=== PATIENT | female | born 1990 | race American Indian/Alaskan Native ===

== ENCOUNTER 2018-04-02 06:06 | Inpatient (IN) | payer MEDICAID ==
[~2018-04-02 06:06] MED LIST: Carboprost Tromethamine 250 MCG/1 ML Amp IM PRN; Lactated Ringers 1,000 ML IV SCH; Oxytocin/Normal Saline 30 UNIT/500 ML BAG IV SCH; Sodium Chloride 0.9% 10 ML Syringe FLUSH PRN; Tranexamic Acid 1,000 MG in Sodium Chloride 0.9% 100 ML IV PRN
[2018-04-02] MEDS: Lactated Ringers 1,000 ML IV SCH ×4 (06:52→21:00)
[2018-04-02] MEDS ORDERED: Citric Acid/Sodium Citrate Solution 30 ML Cup PO ONE (07:00)
[2018-04-02] MEDS ORDERED: ceFAZolin 2 GM in Premix Bag 1 BAG IV ONE (07:00)
[2018-04-02] MEDS ORDERED: Oxytocin/Normal Saline 30 UNIT/500 ML BAG ONE ×2 (07:39→08:48)
[2018-04-02] MEDS ORDERED: Lactated Ringers 1,000 ML IV ONE (12:21)
[2018-04-02] MEDS ORDERED: Ondansetron 4 MG/2 ML SDV IV ONE (12:21)
[2018-04-02] MEDS ORDERED: Dexamethasone 4 MG/ML SDV IV ONE (12:21)
[2018-04-02] MEDS ORDERED: Morphine PF 1 MG/ML Amp ITHECAL ONE (12:21)
[2018-04-02] MEDS ORDERED: Ketorolac 30 MG/ML SDV IVPUSH ONE (12:21)
[2018-04-02] MEDS ORDERED: Misoprostol 400 MCG (4 X 100 MCG TAB) RECTAL PRN (12:39)
[2018-04-02] MEDS ORDERED: Naloxone 2 MG/2 ML Syringe IVPUSH PRN (12:39)
[2018-04-02] MEDS ORDERED: ePHEDrine 50 MG/ML SDV IVPUSH PRN (12:39)
[2018-04-02] MEDS ORDERED: Methylergonovine 0.2 MG/1 ML Amp IM PRN (12:39)
[2018-04-02] MEDS ORDERED: Acetaminophen/oxyCODONE 325-5 MG Tab PO PRN (12:39)
[2018-04-02] MEDS ORDERED: Acetaminophen 325 MG Tab PO PRN (12:39)
[2018-04-02] MEDS ORDERED: diphenhydrAMINE 50 MG/ML SDV IVPUSH PRN (12:39)
[2018-04-02] MEDS ORDERED: Ondansetron 4 MG/2 ML SDV IV PRN (12:39)
[2018-04-02] MEDS ORDERED: Lactated Ringers 1,000 ML IV SCH (12:45)
[2018-04-02] MEDS: Simethicone 80 MG Tab.Chew PO SCH ×3 (13:47→21:50)
--- NOTE | 2018-04-02 14:37 | OR ---
DATE: 04/02/2018 PREOPERATIVE DIAGNOSES: 1. A 27-year-old , 3, para 1-0-1-1. 2. High-risk at 39 weeks 1 day. 3. Prior section. 4. Blood type O positive. Rubella immune. Group B streptococcus negative. 5. History of maternal drug use during with negative urine drug screening on admission. 6. Positive anti-S antibody with stable titer. 7. Increased body mass index. POSTOPERATIVE DIAGNOSES: 1. A 27-year-old , 3, para 2, viable male infant born on 04/02/2020 at 9:36 a.m. with scores of 7 and 9 and weight of 2610 g/5 pounds 12 ounces. 2. High-risk at 39 weeks 1 day. 3. Prior section. 4. Blood type O positive. Rubella immune. Group B streptococcus negative. 5. History of maternal drug use during with negative urine drug screening on admission. 6. Positive anti-S antibody with stable titer. 7. Increased body mass index. PROCEDURE: Elective repeat low transverse section. NEWS CAMERA OPERATOR: Tiffanie Ragland MD. STUDENTS: 1. Aide Cosme MS-IV. 2. Irma Reilly MS-III. FINDINGS: This 27-year-old , G3, P1-0-1-1, had limited care and a high-risk . Please see her notes and admission H and P for details. She presented to the OB floor as scheduled and was brought down to the OR after having a reactive NST on the floor. She underwent spinal anesthesia without complication and had an excellent block. Rich catheter was placed, and then she was prepped and draped in the usual sterile manner. A surgical marker was used to juan antonio her previous Pfannenstiel incision and had a time-out performed in my presence. A skin incision was made with a scalpel. Then, the incision was carried down through the subcutaneous tissue with electrocautery. The fascia was divided transversely, and superior and inferior fascial flaps were developed with sharp and blunt dissection. The rectus was identified and divided in the midline, and the peritoneum was identified and entered bluntly. Incision was opened with blunt dissection. We had excellent visualization of the lower uterine segment. An extra-large Dannie retractor was placed without difficulty. A stab incision was made into the lower uterine segment and extended bilaterally with blunt dissection. The amniotic sac bulged up through the incision and was opened with a hemostat with return of clear amniotic fluid. The vertex was elevated up through the incision, and this male was delivered easily and had spontaneous cry at . He was suctioned, dried, stimulated, then carried to the awaiting nursery staff by the medical student. The cord had been doubly clamped and cut. The cord blood sample was obtained. A 3-vessel cord was noted. The cord was fairly thin and 6 plus inch. A section was sent for drug testing. The placenta was removed intact and later examined and found to be rather small in size. She had a central cord insertion. It did not appear to have any missing caudal lesions. They were calcified and appeared very mature for non-post dates . We will send it to Pathology for evaluation. The uterus was wiped clean and dry. It appeared empty. The uterine incision edges were grasped with Casanova forceps. The uterine incision was closed with running locking 0 Vicryl with excellent results and hemostasis. Any bleeders were electrocauterized. The uterine area was examined. The gutters appeared clear. The abdominal cavity was irrigated, aspirated, and appeared clear of any clots or active bleeding. A final look at the incision showed it to be hemostatic. The peritoneum and muscle layer were brought together with [id number] interrupted 0 Vicryl stitch with good results. The fascia was brought together with running PDS loop suture with excellent results. Subcutaneous tissue appeared clear of any bleeders. Skin edges were brought together with nell. All counts were correct. Estimated blood loss was 400 mL. There were no intraoperative complications, and the patient was transferred to recovery in good condition with stable vital signs. She did receive Pitocin IV infusion per protocol following delivery. She received Ancef 2 g IV preop antibiotic. Estimated blood loss as noted 400 mL. Rich catheter continued to drain clear urine. [facility] /[id number]
[2018-04-02] MEDS: Ketorolac 30 MG/ML SDV IVPUSH SCH ×2 (16:01→21:51)
[2018-04-02] MEDS: ceFAZolin 1 GM in Premix Bag 1 BAG IV SCH ×2 (16:27→21:53)
[2018-04-02] MEDS: Zolpidem 5 MG Tab PO PRN (21:50)
[2018-04-02] MEDS: Docusate Sodium 100 MG Cap PO PRN (21:50)
[2018-04-03] MEDS: Acetaminophen/oxyCODONE 325-5 MG Tab PO PRN ×5 (00:07→20:20)
[2018-04-03] MEDS: Lactated Ringers 1,000 ML IV SCH ×2 (00:10→04:20)
[2018-04-03] MEDS: Ketorolac 30 MG/ML SDV IVPUSH SCH (04:19)
[2018-04-03] MEDS: ceFAZolin 1 GM in Premix Bag 1 BAG IV SCH (05:52)
--- NOTE | 2018-04-03 07:04 | PCM.PNPP ---
- General Info Date of Service: 04/03/18 Subjective Update: Patient is Post day 1 from section and delivery of male . She eating, drinking, and tolerating activity. She complains of some mild cramping and incision site pain. She is having normal amount of bleeding. She has a Rich catheter in place. She denies fever, chills, chest pain, shortness of breath, and lower extremity edema. - General Info Date of Service: 04/03/18 - Patient Data Vital Signs - Most Recent: Last Vital Signs Temp 97.9 F 04/03/18 04:00 Pulse 59 L 04/03/18 04:00 Resp 16 04/03/18 04:00 BP 97/47 L 04/03/18 04:00 Pulse Ox 16 L 04/02/18 20:00 Weight - Most Recent: 232 lb I&O - Last 24 Hours: Intake & Output 04/02/18 04/03/18 04/03/18 22:59 06:59 14:59 Intake Total 550 Output Total 300 185 Balance 250 -185 Lab Results - Last 24 Hours: Laboratory Results - last 24 hr 04/02/18 04/02/18 04/02/18 Range/Units 06:43 06:43 07:07 WBC 9.0 (5.0-10.0) 10^3/uL RBC 3.87 L (4.2-5.4) 10^6/uL Hgb 11.0 L D (12.0-16.0) g/dL Hct 33.2 L (37.0-47.0) % MCV 85.8 (80-100) fL MCH 28.4 (27.0-34.0) pg MCHC 33.1 (33.0-35.0) g/dL Plt Count 244 D (150-450) 10^3/uL Neut % (Auto) 57.8 (42.2-75.2) % Lymph % (Auto) 34.3 (20.5-50.1) % [place] % (Auto) 6.4 (2-8) % Eos % (Auto) 1.3 (1.0-3.0) % Baso % (Auto) 0.2 (0.0-1.0) % Urine Opiates Screen Negative (NEGATIVE) Ur Oxycodone Screen Negative (NEGATIVE) Urine Methadone Screen Negative (NEGATIVE) Ur Barbiturates Screen Negative (NEGATIVE) U Tricyclic Antidepress Negative (NEGATIVE) Ur Phencyclidine Scrn Negative (NEGATIVE) Ur Amphetamine Screen Negative (NEGATIVE) U Methamphetamines Scrn Negative (NEGATIVE) Urine MDMA Screen Negative (NEGATIVE) U Benzodiazepines Scrn Negative (NEGATIVE) Urine Cocaine Screen Negative (NEGATIVE) U Marijuana (THC) Screen Negative (NEGATIVE) Blood Type O POSITIVE Gel Antibody Screen Positive Med Orders - Current: Current Medications Acetaminophen (Tylenol) 650 mg PO Q6H PRN PRN Reason: mild pain or fever Last Admin: 04/02/18 13:48 Dose: 650 mg Carboprost Tromethamine (Hemabate Ds) 250 mcg IM ASDIRECTED PRN PRN Reason: Excessive vaginal bleeding Diphenhydramine HCl (Benadryl) 25 mg IVPUSH Q6H PRN PRN Reason: Itching or Nausea Docusate Sodium (Colace) 100 mg PO Q12H PRN PRN Reason: Constipation Last Admin: 04/02/18 21:50 Dose: 100 mg Ephedrine Sulfate (Ephedrine Sulfate) 5 mg IVPUSH SEECOMMENT PRN PRN Reason: Other Lactated Ringer's (Ringers, Lactated) 1,000 mls @ 125 mls/hr IV ASDIRECTED MARISSA Last Admin: 04/03/18 04:20 Dose: 125 mls/hr Lactated Ringer's (Ringers, Lactated) 1,000 mls @ 500 mls/hr IV .BOLUS MARISSA Tranexamic Acid 1,000 mg/ (Sodium Chloride) 110 mls @ 660 mls/hr IV ONETIME PRN PRN Reason: Bleeding Oxytocin/Sodium Chloride (Pitocin In Ns 30 Unit/500 Ml) 30 unit in 500 mls @ 500 mls/hr IV TITRATE MARISSA; Protocol Last Titration: 04/02/18 12:30 Dose: 0 ml/hr, 0 mls/hr Lactated Ringer's (Ringers, Lactated) 1,000 mls @ 125 mls/hr IV ASDIRECTED MARISSA Ibuprofen (Motrin) 800 mg PO Q8H PRN PRN Reason: mild pain or fever Methylergonovine Maleate (Methergine) 0.2 mg IM ONETIME PRN PRN Reason: Excessive Vaginal Bleeding Misoprostol (Cytotec) 800 mcg RECTAL ASDIRECTED PRN PRN Reason: Excessive bleeding Naloxone HCl (Narcan) 0.1 mg IVPUSH SEECOMMENT PRN PRN Reason: Respiratory Depression Ondansetron HCl (Zofran) 4 mg IV Q4H PRN PRN Reason: Nausea/Vomiting Oxycodone/Acetaminophen (Percocet 325-5 Mg) 1 tab PO Q4H PRN PRN Reason: Pain (moderate 4-6) Oxycodone/Acetaminophen (Percocet 325-5 Mg) 2 tab PO Q4H PRN PRN Reason: Pain (severe 7-10) Last Admin: 04/03/18 00:07 Dose: 2 tab Simethicone (Simethicone) 160 mg PO QID MARISSA Last Admin: 04/02/18 21:50 Dose: 160 mg Sodium Chloride (Saline Flush) 10 ml FLUSH ASDIRECTED PRN PRN Reason: Keep Vein Open Zolpidem Tartrate (Ambien) 5 mg PO BEDTIME PRN PRN Reason: Sleep Last Admin: 04/02/18 21:50 Dose: 5 mg Discontinued Medications Citric Acid/Sodium Citrate (Bicitra Solution) 30 ml PO ONETIME ONE Stop: 04/02/18 07:01 Last Admin: 04/02/18 07:11 Dose: 30 ml Dexamethasone (Dexamethasone) 8 mg IV .STK-MED ONE Stop: 04/02/18 12:22 Cefazolin Sodium/Dextrose 2 gm (/ Premix) 50 mls @ 100 mls/hr IV ONETIME ONE Stop: 04/02/18 07:29 Last Admin: 04/02/18 09:15 Dose: 100 mls/hr Oxytocin/Sodium Chloride (Pitocin In Ns 30 Unit/500 Ml) Confirm Administered Dose 60 unit in 1,000 mls @ as directed .ROUTE .STK-MED ONE Stop: 04/02/18 07:40 Oxytocin/Sodium Chloride (Pitocin In Ns 30 Unit/500 Ml) Confirm Administered Dose 30 unit in 500 mls @ as directed .ROUTE .STK-MED ONE Stop: 04/02/18 08:49 Lactated Ringer's (Ringers, Lactated) 1,000 mls @ as directed IV .STK-MED ONE Stop: 04/02/18 12:22 Cefazolin Sodium/Dextrose 1 gm (/ Premix) 50 mls @ 100 mls/hr IV Q8HR [facility] Stop: 04/03/18 06:29 Last Admin: 04/03/18 05:52 Dose: 100 mls/hr Ketorolac Tromethamine (Toradol) 30 mg IVPUSH .STK-MED ONE Stop: 04/02/18 12:22 Ketorolac Tromethamine (Toradol) 15 mg IVPUSH Q6H [facility] Stop: 04/03/18 04:01 Last Admin: 04/03/18 04:19 Dose: 15 mg Morphine Sulfate (Duramorph Pf) 0.2 mg ITHECAL .STK-MED ONE Stop: 04/02/18 12:22 Ondansetron HCl (Zofran) 4 mg IV .STK-MED ONE Stop: 04/02/18 12:22 - Infant Interaction Disposition, : [place] to Nursery (Overnight) Support Person: Significant Other - Recovery Exam Fundal Tone: Firm Fundal Level: 2 Fingerbreadths Above Umbilicus Fundal Placement: Midline Lochia Amount: Small Lochia Color: Rubra/Red Perineum Description: Intact, Minimal Bruising/Swelling Episiotomy/Laceration: None Bladder Status: Nonpalpable, Indwelling Catheter in Place Urinary Elimination: Indwelling Catheter - Exam Quality Assessment: Urine Catheter, DVT Prophylaxis General: Alert, Oriented, Cooperative, No Acute Distress HEENT: Pupils Equal Neck: Supple Lungs: Clear to Auscultation, Normal Respiratory Effort Cardiovascular: Regular Rate, Regular Rhythm GI/Abdominal Exam: Soft, Tender (mildly tender) Extremities: Normal Inspection, Non-Tender Skin: Warm, Dry Wound/Incisions: Dressing Dry and Intact. No: Erythema - Assessment Assessment:: 1. Postoperative day #1, status post repeat low transverse section. 2. Hemoglobin 8.3 down from 11 preop. No symptoms were noted when patient is up and active. Will follow closely and clinically. - Plan Plan:: 1. Continue routine cares. 2. Formula feeding. 3. Continue monitoring due to acute blood loss during surgery. Patient was seen today by myself and Dr. Liliane Paredes. Assessment and plan are under advisement of Dr. Paredes. Irma Reilly, [facility]
[2018-04-03] MEDS: Docusate Sodium 100 MG Cap PO PRN ×2 (07:54→20:19)
[2018-04-03] MEDS: Simethicone 80 MG Tab.Chew PO SCH ×4 (07:59→20:20)
[2018-04-03] MEDS ORDERED: Oxytocin/Normal Saline 30 UNIT/500 ML BAG IV ONE (11:08)
[2018-04-03] MEDS: Ibuprofen 800 MG Tab PO PRN ×2 (12:08→23:08)
[2018-04-03] MEDS: Zolpidem 5 MG Tab PO PRN (23:08)
[2018-04-04] MEDS: Acetaminophen/oxyCODONE 325-5 MG Tab PO PRN ×4 (00:05→16:45)
[2018-04-04] MEDS: Docusate Sodium 100 MG Cap PO PRN (07:59)
[2018-04-04] MEDS: Simethicone 80 MG Tab.Chew PO SCH ×3 (07:59→16:31)
[2018-04-04] MEDS: Ibuprofen 800 MG Tab PO PRN (09:27)
[2018-04-04 12:33] VITALS: BP 148/87
--- NOTE | 2018-04-04 16:28 | PCM.PNPP ---
- General Info Date of Service: 04/04/18 (POD/PPD # 2 S/P LTC/S) Functional Status: Reports: Pain Controlled, Tolerating Diet, Ambulating, Urinating - Review of Systems General: Reports: No Symptoms HEENT: Reports: No Symptoms Pulmonary: Reports: No Symptoms Cardiovascular: Reports: No Symptoms Gastrointestinal: Reports: No Symptoms Genitourinary: Reports: No Symptoms Musculoskeletal: Reports: No Symptoms Skin: Reports: No Symptoms Neurological: Reports: No Symptoms Psychiatric: Reports: No Symptoms - General Info Date of Service: 04/04/18 (POD/PPD # 2) - Patient Data Vital Signs - Most Recent: Last Vital Signs Temp 99.6 F 04/04/18 12:00 Pulse 71 04/04/18 12:00 Resp 16 04/04/18 12:00 BP 148/87 H 04/04/18 12:00 Pulse Ox 100 04/04/18 12:00 Weight - Most Recent: 232 lb Med Orders - Current: Current Medications Acetaminophen (Tylenol) 650 mg PO Q6H PRN PRN Reason: mild pain or fever Last Admin: 04/02/18 13:48 Dose: 650 mg Carboprost Tromethamine (Hemabate Ds) 250 mcg IM ASDIRECTED PRN PRN Reason: Excessive vaginal bleeding Diphenhydramine HCl (Benadryl) 25 mg IVPUSH Q6H PRN PRN Reason: Itching or Nausea Docusate Sodium (Colace) 100 mg PO Q12H PRN PRN Reason: Constipation Last Admin: 04/04/18 07:59 Dose: 100 mg Ephedrine Sulfate (Ephedrine Sulfate) 5 mg IVPUSH SEECOMMENT PRN PRN Reason: Other Lactated Ringer's (Ringers, Lactated) 1,000 mls @ 125 mls/hr IV ASDIRECTED MARISSA Last Admin: 04/03/18 04:20 Dose: 125 mls/hr Lactated Ringer's (Ringers, Lactated) 1,000 mls @ 500 mls/hr IV .BOLUS MARISSA Tranexamic Acid 1,000 mg/ (Sodium Chloride) 110 mls @ 660 mls/hr IV ONETIME PRN PRN Reason: Bleeding Oxytocin/Sodium Chloride (Pitocin In Ns 30 Unit/500 Ml) 30 unit in 500 mls @ 500 mls/hr IV TITRATE MARISSA; Protocol Last Titration: 04/02/18 12:30 Dose: 0 ml/hr, 0 mls/hr Lactated Ringer's (Ringers, Lactated) 1,000 mls @ 125 mls/hr IV ASDIRECTED MARISSA Ibuprofen (Motrin) 800 mg PO Q8H PRN PRN Reason: mild pain or fever Last Admin: 04/04/18 09:27 Dose: 800 mg Methylergonovine Maleate (Methergine) 0.2 mg IM ONETIME PRN PRN Reason: Excessive Vaginal Bleeding Misoprostol (Cytotec) 800 mcg RECTAL ASDIRECTED PRN PRN Reason: Excessive bleeding Naloxone HCl (Narcan) 0.1 mg IVPUSH SEECOMMENT PRN PRN Reason: Respiratory Depression Ondansetron HCl (Zofran) 4 mg IV Q4H PRN PRN Reason: Nausea/Vomiting Oxycodone/Acetaminophen (Percocet 325-5 Mg) 1 tab PO Q4H PRN PRN Reason: Pain (moderate 4-6) Oxycodone/Acetaminophen (Percocet 325-5 Mg) 2 tab PO Q4H PRN PRN Reason: Pain (severe 7-10) Last Admin: 04/04/18 12:34 Dose: 2 tab Simethicone (Simethicone) 160 mg PO QID MARISSA Last Admin: 04/04/18 12:33 Dose: 160 mg Sodium Chloride (Saline Flush) 10 ml FLUSH ASDIRECTED PRN PRN Reason: Keep Vein Open Zolpidem Tartrate (Ambien) 5 mg PO BEDTIME PRN PRN Reason: Sleep Last Admin: 04/03/18 23:08 Dose: 5 mg Discontinued Medications Citric Acid/Sodium Citrate (Bicitra Solution) 30 ml PO ONETIME ONE Stop: 04/02/18 07:01 Last Admin: 04/02/18 07:11 Dose: 30 ml Dexamethasone (Dexamethasone) 8 mg IV .STK-MED ONE Stop: 04/02/18 12:22 Cefazolin Sodium/Dextrose 2 gm (/ Premix) 50 mls @ 100 mls/hr IV ONETIME ONE Stop: 04/02/18 07:29 Last Admin: 04/02/18 09:15 Dose: 100 mls/hr Oxytocin/Sodium Chloride (Pitocin In Ns 30 Unit/500 Ml) Confirm Administered Dose 60 unit in 1,000 mls @ as directed .ROUTE .STK-MED ONE Stop: 04/02/18 07:40 Oxytocin/Sodium Chloride (Pitocin In Ns 30 Unit/500 Ml) Confirm Administered Dose 30 unit in 500 mls @ as directed .ROUTE .STK-MED ONE Stop: 04/02/18 08:49 Lactated Ringer's (Ringers, Lactated) 1,000 mls @ as directed IV .STK-MED ONE Stop: 04/02/18 12:22 Cefazolin Sodium/Dextrose 1 gm (/ Premix) 50 mls @ 100 mls/hr IV Q8HR MARISSA Stop: 04/03/18 06:29 Last Admin: 04/03/18 05:52 Dose: 100 mls/hr Oxytocin/Sodium Chloride (Pitocin In Ns 30 Unit/500 Ml) 30 unit in 500 mls @ as directed IV .STK-MED ONE Stop: 04/03/18 11:09 Ketorolac Tromethamine (Toradol) 30 mg IVPUSH .STK-MED ONE Stop: 04/02/18 12:22 Ketorolac Tromethamine (Toradol) 15 mg IVPUSH Q6H MARISSA Stop: 04/03/18 04:01 Last Admin: 04/03/18 04:19 Dose: 15 mg Morphine Sulfate (Duramorph Pf) 0.2 mg ITHECAL .STK-MED ONE Stop: 04/02/18 12:22 Ondansetron HCl (Zofran) 4 mg IV .STK-MED ONE Stop: 04/02/18 12:22 - Interaction Infant Disposition, : to Nursery (Overnight) Interaction: Holding Infant Feeding: Bottle Fed Infant Support Person: Significant Other - Recovery Exam Fundal Tone: Firm Fundal Level: 2 Fingerbreadths Above Umbilicus Fundal Placement: Midline Lochia Amount: Small Lochia Color: Rubra/Red Perineum Description: Intact, Minimal Bruising/Swelling Episiotomy/Laceration: None Bladder Status: Nonpalpable, Indwelling Catheter in Place Urinary Elimination: Indwelling Catheter - Exam General: Alert, Oriented, Cooperative, No Acute Distress HEENT: Pupils Equal, Pupils Reactive, EOMI, Mucous Membr. Moist/Innovation Neck: Supple Lungs: Clear to Auscultation, Normal Respiratory Effort Cardiovascular: Regular Rate, Regular Rhythm, No Murmurs GI/Abdominal Exam: Normal Bowel Sounds, Soft, Non-Tender, No Organomegaly, No Distention Extremities: Normal Inspection, Normal Range of Motion, Non-Tender, No Pedal Edema, Normal Capillary Refill Neurological: No New Focal Deficit, Normal Gait, Normal Speech Psy/Mental Status: Alert, Normal Affect, Normal Mood - Problem List Review Problem List Initiated/Reviewed/Updated: Yes - My Orders Last 24 Hours: My Active Orders 04/04/18 15:55 Ready for Discharge [RC] PER UNIT ROUTINE - Assessment Assessment:: 1. Postoperative day #2, status post repeat low transverse section. 2. Acute anemia secondary to blood loss. - Plan Plan:: 1. Discharge to home. 2. Formula feeding. 3. Aquacel Ag Dressing placed. 4. Ibuprofen and Percocet for pain control
--- NOTE | 2018-04-05 04:35 | DISCH ---
INDICATION FOR ADMISSION: Ms. Amos is a 27-year-old 3, para 1-0-1- 1, female who reports to [facility] for a repeat section. She underwent her repeat low transverse section via Pfannenstiel skin incision without difficulty. No complications occurred. She went from the operating room to recovery and then to the OB Floor. She tolerated the rest of her hospital stay quite well. She was afebrile. Vital signs were stable. She tolerated her diet well and ambulated quite well. No complications occurred throughout her hospital stay. There was no drainage from her wound. No erythema or infection seen. She had minimal lochia. She was discharged to home on postop day/ day #2. She did have web content & social media manager come see her and the baby because of her maternal drug use throughout the . Urine drug screen on admission was negative. LABORATORY AND DIAGNOSTIC STUDIES: 04/02/2018, WBC 9.0, hemoglobin 11.0, hematocrit 33.2, platelet count 244,000. Urine drug screen completely negative. 04/03/2018, WBC 9.0, hemoglobin 8.3, hematocrit 25.6, platelet count 157,000. DISCHARGE INSTRUCTIONS: 1. Discharged to home. 2. Follow up with Dr. Paredes next week for staple removal, wound check. 3. Follow up at 6 week checkup. 4. No douching, tampons, intercourse for 6 weeks. 5. Discharge instructions including activity, followup, medications, diet and wound care were discussed with the patient. She understands these and is willing to comply with these. 6. Ibuprofen 800 mg one tablet t.i.d. p.r.n. for pain. 7. Percocet 5/325 one tablet t.i.d. p.r.n. for pain, dispense #30. DISCHARGE DIAGNOSES: 1. A 27-year-old 3, para 1-0-1-1 female at 39 and 1/7 weeks' gestation. 2. Previous section x1. 3. Declines trial of labor after section. Desires repeat section. 4. Maternal drug use during . 5. Negative drug screen on admission. 6. Positive anti-S antibody with stable titer. 7. Increased body mass index. 8. Repeat low transverse section via Pfannenstiel skin incision with delivery of a viable male infant, weighing 5 pounds 12 ounces, 18-1/4 inches long with scores of seven at 1 minute, nine at 5 minutes. 9. Spinal anesthesia with Duramorph. [facility] /[id number]
== END 2018-04-04 15:30 | disposition home or self-care (01) | DRG 787 ==
LOC: UNDOADMOB 06:06 → DL.OB 06:06 → DL.MS 06:06 → INTOOBSV 09:36 → EEVIPCON 09:36 → OBSVTOIN 09:36 → DL.MS 09:36
PROVIDERS: ADMIT Family Medicine; ATTEND Family Medicine
PROC: 10D00Z1 Extraction of Products of Conception, Low, Open Approach (ICD-10-PCS; principal; 2018-04-02)
DX: O34.211 Maternal care for low transverse scar from previous cesarean delivery (principal); O99.324 Drug use complicating childbirth; D62 Acute posthemorrhagic anemia; Z3A.38 38 weeks gestation of pregnancy; Z37.0 Single live birth; O99.214 Obesity complicating childbirth; E66.9 Obesity, unspecified; Z90.49 Acquired absence of other specified parts of digestive tract; Z87.891 Personal history of nicotine dependence; O99.02 Anemia complicating childbirth; F12.90 Cannabis use, unspecified, uncomplicated
CPT/HCPCS: 36415; 51702; 59025; 59409; 80305-QW; 85025; 85027; 86850; 86870; 86900; 86901; 94010; A9270-GY; J0690; J1100; J1885; J2274; J2405; J2590; J7120

== ENCOUNTER 2021-04-01 20:14 | Emergency (ER) | payer MEDICAID ==
[2021-04-01 21:17] LABS: CORONAVIRUS COVID-19 NAA NEGATIVE (NEGATIVE)
[2021-04-01 21:27] VITALS: BP 158/97; PULSE 98
== END 2021-04-01 21:40 | disposition home or self-care (01) ==
LOC: DL.ED 20:14
DX: J06.9 Acute upper respiratory infection, unspecified (principal); E66.9 Obesity, unspecified; Z68.41 Body mass index [BMI] 40.0-44.9, adult; Z72.0 Tobacco use; Z20.822 Contact with and (suspected) exposure to COVID-19
CPT/HCPCS: 0240U; 87081; 87430; 99283

== ENCOUNTER 2021-04-18 18:47 | Emergency (ER) | payer MEDICAID | END 2021-04-18 19:34 | disposition left against medical advice (07) | LOC: DL.ED 18:47 | DX: R05.9 Cough, unspecified (principal); Z53.21 Procedure and treatment not carried out due to patient leaving prior to being seen by health care provider ==

== ENCOUNTER 2021-05-06 15:52 | Emergency (ER) | payer MEDICAID ==
[2021-05-06 16:04] VITALS: BP 142/95; PULSE 120
== END 2021-05-06 16:26 | disposition left against medical advice (07) ==
LOC: DL.ED 15:52
DX: Z53.21 Procedure and treatment not carried out due to patient leaving prior to being seen by health care provider (principal)

== ENCOUNTER 2021-06-30 02:23 | Emergency (ER) | payer MEDICAID ==
[2021-06-30 02:42] VITALS: BP 147/86; PULSE 99
== END 2021-06-30 03:21 | disposition home or self-care (01) ==
LOC: DL.ED 02:23
DX: T19.2XXA Foreign body in vulva and vagina, initial encounter (principal); E66.9 Obesity, unspecified; Z68.41 Body mass index [BMI] 40.0-44.9, adult; Z72.0 Tobacco use
CPT/HCPCS: 99282; 99283

== ENCOUNTER 2021-08-16 09:39 | Emergency (ER) | payer MEDICAID ==
[2021-08-16 10:03] VITALS: BP 124/73; PULSE 80
[2021-08-16 10:40] LABS: PTT,PARTIAL THROMBOPLSTIN TIME 21.9 SEC (22.0-34.0)
[2021-08-16 11:05] LABS: CORONAVIRUS COVID-19 NAA NEGATIVE (NEGATIVE)
[2021-08-16 11:21] LABS: ANION GAP 13.7 mEq/L (7-13)
[2021-08-16] MEDS ORDERED: Pantoprazole 40 MG in Sodium Chloride 0.9% 100 ML IV SCH (12:30)
[2021-08-16] MEDS ORDERED: Pantoprazole 40 MG Vial IVPUSH ONE (12:42)
[2021-08-16] MEDS: Pantoprazole 40 MG in Sodium Chloride 0.9% 100 ML IV ONE ×2 (12:49→16:08)
[2021-08-16] MEDS ORDERED: Acetaminophen 500 MG Tab PO ONE (12:54)
== END 2021-08-16 13:01 ==
LOC: DL.ED 09:39
DX: K92.2 Gastrointestinal hemorrhage, unspecified (principal); E66.9 Obesity, unspecified; Z68.42 Body mass index [BMI] 45.0-49.9, adult; Z20.822 Contact with and (suspected) exposure to COVID-19
CPT/HCPCS: 0240U; 36415; 71045; 80053; 81003; 81025; 82150; 82272; 83605; 83690; 84484; 85025; 85610; 85730; 86140; 86850; 86870; 86900; 86901; 93005; 96374; 99285; A9270; C9113; J3490; 93010; 99284

== ENCOUNTER 2021-08-19 14:50 | Emergency (ER) | payer MEDICAID ==
[2021-08-19] MEDS ORDERED: Naproxen 500 MG Tab PO ONE (14:51)
[2021-08-19] MEDS ORDERED: Naproxen 500 MG Tab ONE (15:57)
== END 2021-08-19 16:02 | disposition home or self-care (01) ==
LOC: DL.ED 14:50
DX: I80.8 Phlebitis and thrombophlebitis of other sites (principal)
CPT/HCPCS: 99282; 99284; A9270

== ENCOUNTER 2022-03-26 20:35 | Emergency (ER) | payer MEDICAID ==
[2022-03-26 21:01] VITALS: BP 118/70; PULSE 101
[2022-03-26 21:50] LABS: CORONAVIRUS COVID-19 NAA NEGATIVE (NEGATIVE); RESPIRATORY SYNCYTIAL VIR NAA NEGATIVE (NEGATIVE)
[2022-03-26] MEDS ORDERED: Amoxicillin/Clavulanate K 875-125 MG Tab PO ONE (21:55)
== END 2022-03-26 22:11 | disposition home or self-care (01) ==
LOC: DL.ED 20:35
DX: J01.10 Acute frontal sinusitis, unspecified (principal); F17.210 Nicotine dependence, cigarettes, uncomplicated; E66.9 Obesity, unspecified; Z68.43 Body mass index [BMI] 50.0-59.9, adult; Z20.822 Contact with and (suspected) exposure to COVID-19
CPT/HCPCS: 0241U; 71045; 99285; A9270-GY

== ENCOUNTER 2022-09-10 19:31 | Emergency (ER) | payer MEDICAID ==
[2022-09-10 19:48] VITALS: BP 136/82; PULSE 101
== END 2022-09-10 20:13 | disposition left against medical advice (07) ==
LOC: DL.ED 19:31
DX: Z53.21 Procedure and treatment not carried out due to patient leaving prior to being seen by health care provider (principal)